=== PATIENT | female | born 1990 | race Caucasian/White ===

== ENCOUNTER 2019-11-27 07:00 | Inpatient (IN) | payer OTHER ==
[2019-11-27 08:34] VITALS: BMI 28.4
[2019-11-27] MEDS ORDERED: OXYTOCIN 30 UNITS in 0.9% NS 30 UNIT/500 ML INFUS.BAG IVPB ONE (08:42)
--- NOTE | 2019-11-27 08:57 | HP ---
Past Medical History - Primary Care Physician PCP:: Rubin Quinones E - Admission Chief Complaint: term History of Present Illness: First baby. Uneventful . GBS neg. 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: Alzheimer's, CVA, Dementia, Migraine, Multiple Sclerosis, Peripheral Neuropathy, Parkinson's, Seizure, Syncope, TIA, Vertigo, Other Cardiovascular: No: AFIB, Aneurysm, Aortic Insufficiency, Aortic Stenosis, CAD, CHF, Deep Vein Thrombosis, HTN, Hyperlipdemia, NV, Mitral Insufficiency, Mitral Stenosis, Murmur, Pulmonary Hypertension, Other Pulmonary: No: Asthma, Bronchitis, Cancer, COPD, O2 Dependent, Pneumonia, Previously Intubated, Pulmonary Embolus, Pulmonary Fibrosis, Sleep Apnea, Other Gastrointestinal: No: Ascites, Cancer, Constipation, Crohn's Disease, Diverticulitis, Diverticulosis, Esophageal Varices, Gastritis, GERD, GI Bleed, Hemorrhoids, Hiatal Hernia, Inflamatory Bowel Disease, Irritable Bowel Disease, Pancreatitis, Peptic Ulcer Disease, Ulcerative Colitis, Other Hepatobiliary: No: Cirrhosis, Cholelithiasis, Cholecystitis, Choledocholithiasis, Hepatitis A, Hepatitis B, Hepatitis C, Other Renal/: No: Renal Failure, Renal Inusuff, BPH, Cancer, Hematuria, Hemodialysis, Neurogenic Bladder, Renal Calculi, UTI, Other Reproductive: No: Ectopic , Endometriosis, Fibroids, PID, Polycystic Ovary Syndrome, Postmenopausal, Other ...: 1 ...Para: 0 ...Term: 0 ...: 0 ...Spon : 0 ...Induced : 0 ...Living Children: 0 ...Multiple Gestation: 0 ...LMP: 02/21/19 ... Weeks Gestation by Dates: 39.6 ...EDC by Dates: 11/28/19 ...EDC by Sono: 11/29/19 Heme/Onc: No: Anemia, B12 Deficiency, Bleeding Disorder, Cancer, Current Chemotherapy, Current Radiation Therapy, Hemochromatosis, Hypercoaguable State, Myeloproliferative Synd, Sickle Cell Disease, Sickle Cell Trait, Thrombocytopenia, Other Infectious Disease: No: AIDS, C-Diff, Herpes Zoster, HIV, MRSA, STD's, Tuberculosis, VREF, Other Psych: No: Addictions, Anxiety, Bipolar, Depression, Panic, Psychosis, Schizophrenia, Other Musculoskeletal: No: Bursitis, Chronic low back pain, Hemiparesis, Hemiplegia, Osteoarthritis, Paraplegia, Other Rheumatology: No: Fibromyalgia, Gout, Lupus, Rheumatoid Arthritis, Sarcoidosis, Vasculitis, Other ENT: No: Allergic Rhinitis, Sinusitis, Other Endocrine: No: Geo's Disease, [place]'s Disease, Diabetes Insipidus, Diabetes Mellitus, Hyperparathyroidism, Hyperthyroidism, Hypothyroidism, Osteopenia, SIADH, Other Dermatology: No: Basal Cell, Cellulitis, Eczema, Melanoma, Psoriasis, Squamous Cell, Other - Past Surgical History Past Surgical History: No: None, AAA Repair, AICD, Amputation, Appendectomy, Arthrosocopy, AV Fistula/Graft, Bariatric Surgery, Breast Biopsy, Bypass, CABG, Carotid Endarterectomy, Cataract Removal, Cholecystectomy, Colectomy, Colonoscopy, Colostomy, Craniotomy, , Cystectomy, Hernia Repair, Hysterectomy, Ileal Conduit, Ileosotomy, Joint Replacement, Kidney Transplant, Laminectomy, Liver Transplant, Mastectomy, Nephrectomy, Oopherectomy, Orchiectomy, Permanent Pacemaker, Prostatectomy, Splenectomy, Stent, Thoracotomy, TURP, Tonsillectomy, Tubal Ligation, Upper Endoscopy, Valve Replacement, Vasectomy, Vein Stripping/Ligation Hx Myomectomy: No Hx Transabdominal Cerclage: No - Smoking History Smoking history: Never smoked - Alcohol/Substance Use Hx Alcohol Use: No Home Medications - Allergies Allergies/Adverse Reactions: Allergies Allergy/AdvReac Type Severity Reaction Status Date / Time No Known Allergies Allergy Verified 11/27/19 08:02 - Home Medications Home Medications: Ambulatory Orders No115/Iron/Folic Acid [ 19 Chewable Tablet] 1 each PO DAILY 11/27/19 Family Medical History Family History: Unremarkable Review of Systems - Review of Systems Constitutional: reports: No Symptoms Eyes: reports: No Symptoms HENT: reports: No Symptoms Neck: reports: No Symptoms Cardiovascular: reports: No Symptoms Respiratory: reports: No Symptoms Gastrointestinal: reports: No Symptoms Genitourinary: reports: No Symptoms Breasts: reports: No Symptoms Reported Musculoskeletal: reports: No Symptoms Integumentary: reports: No Symptoms Neurological: reports: No Symptoms Endocrine: reports: No Symptoms Hematology/Lymphatic: reports: No Symptoms Psychiatric: reports: No Symptoms Physical Exam - Maternity Vital Signs: Vital Signs Temperature 98.8 F 11/27/19 08:47 Pulse Rate 113 H 11/27/19 08:47 Respiratory Rate 18 11/27/19 08:47 Blood Pressure 126/79 11/27/19 08:47 O2 Sat by Pulse Oximetry (%) Constitutional: Yes: Well Nourished, No Distress, Calm Eyes: Yes: WNL, Conjunctiva Clear, EOM Intact HENT: Yes: WNL, Atraumatic, Normocephalic Neck: Yes: WNL, Supple, Trachea Midline Cardiovascular: Yes: WNL, Regular Rate and Rhythm Breast(s): Yes: WNL - Abdominal Exam/OB Fundal Height: 40 Contractions: No Monitor Mode: External Heart Rate (range): 140 Heart Rate Location: RUQ Category: I Accelerations: Uniform Decelerations: None - Vaginal Exam/OB Vaginal Bleeding: No Dilatation (cm): 1-2 Effacement (%): 40 Amniotic Membrane Status: Intact Presentation: Vertex/Position Station: -1 Problem List - Problems (1) with 39 completed weeks gestation Code(s): Z3A.39 - 39 WEEKS GESTATION OF Assessment/Plan Desire for induction. All discussed. Pt. understands all implications and consents.
[2019-11-27] MEDS ORDERED: OXYTOCIN 30 UNITS in 0.9% NS 30 UNIT/500 ML INFUS.BAG IVPB SCH (09:00)
[2019-11-27 09:07] LABS: BASO % 0.4 % (0-2.0); EOS % 0.4 % (0-4.5); HEMATOCRIT 39.9 % (32.4-45.2); LYMPH % 12.4 % (8-40); MCH 32.8 pg (25.7-33.7); MCHC 35.1 g/dl (32.0-36.0); MEAN CELL VOLUME 93.4 fl (80-96); MEAN PLT VOLUME 8.7 fl (7.5-11.1); MONO % 7.4 % (3.8-10.2); NEUT % 79.4 % (42.8-82.8); PLATELET COUNT 197 K/MM3 (134-434); RBC 4.27 M/mm3 (3.60-5.2); RDW 13.2 % (11.6-15.6); WHITE BLOOD COUNT 11.7 K/mm3 (4.0-10.0)
[2019-11-27 09:13] LABS: INR 0.92 (0.83-1.09); PROTHROMBIN TIME (PATIENT) 10.9 SEC (9.7-13.0)
[2019-11-27 09:16] LABS: ACTIVATED PTT 27.1 SECONDS (25.2-36.5)
[2019-11-27 09:29] LABS: BLOOD UREA NITROGEN 7.8 mg/dL (7-18); CALCIUM 8.9 mg/dL (8.5-10.1); CREATININE 0.6 mg/dL (0.55-1.3)
[2019-11-27] MEDS ORDERED: DEXTROSE 5%-LACTATED RINGERS 1,000 ML IV SCH (10:15)
[2019-11-27] MEDS ORDERED: FENTANYL/BUPIVACAINE/NS/PF - PCEA - 50 ML DISP.SYRIN EP ONE (13:21)
[2019-11-27] MEDS ORDERED: PCA PUMP NR ONE (13:22)
[2019-11-27] MEDS ORDERED: NALOXONE HCL 0.4 MG/ML VIAL IVPUSH PRN (13:36)
[2019-11-27] MEDS ORDERED: BUPIVACAINE HCL/PF 0.25% (2.5MG/ML) 10 ML VIAL ONE (13:37)
[2019-11-27] MEDS ORDERED: FENTANYL/BUPIVACAINE/NS/PF - PCEA - 50 ML DISP.SYRIN EP SCH (13:45)
--- NOTE | 2019-11-27 14:15 | PN ---
Progress Note, Labor Vaginal Exam #1 Labor Exam Date: 11/27/19 Labor Exam Time: 09:40 Heart Rate (range): 140 w accelerations Dilatation: 2 Effacement (%): 50 Amniotic Membrane Status: Intact Presentation: Vertex/Position Station: -1 Remarks: Pitocin since 10:00 hrs. Some ctx. AROM - clear AF. Vaginal Exam #2 Labor Exam Date: 11/27/19 Labor Exam Time: 13:30 Heart Rate (range): 135, cat 1. Dilatation: 4 Effacement (%): 80 Presentation: Vertex/Position Station: -1 Remarks: Active labor, in pain. Epidural discussed. Pt. wants it. Hydrated. Anesthesia called.
[2019-11-27] MEDS ORDERED: LIDOCAINE HCL 1% PRESERVATIVE FREE - 30ML VIAL ONE (15:39)
[2019-11-27] MEDS ORDERED: OXYTOCIN 20 UNITS in 0.9% NS 20 UNIT/1,000 ML INFUS.BAG IV ONE (15:39)
--- NOTE | 2019-11-27 17:25 | PN ---
Progress Note, Labor Vaginal Exam #3 Labor Exam Date: 11/27/19 Labor Exam Time: 17:05 Dilatation: 10 Station: +1 Remarks: Pushing. ROT. Rotates w bearing down.
--- NOTE | 2019-11-27 19:08 | PN ---
Delivery - Delivery Vaginal Delivery: No Problems, Spontaneous Type of Anesthesia: Local, Epidural Episiotomy/Laceration: Midline, Right Mediolateral EBL (cc): 300 Delivery, Single - Stages of Labor Date 1st Stage Initiatied: 11/27/19 Time 1st Stage Initiated: 12:00 Date 2nd Stage Initiated: 11/27/19 Time 2nd Stage Initiated: 17:00 Date of Delivery: 11/27/19 Time of Delivery: 18:15 Time Placenta Delivered: 18:21 Placenta: Yes: Spontaneous, Normal Configuration - Condition of Infant Shoe Sprayer/Carbon Cutter Present: No Infant Gender: Female Position: Right, OA Total Hours ROM (Hrs/Mins): 8h41m - 1 Minute Total Score: 8 5 Minutes Total Score: 9 - [place] Feeding Plan Initial Plan: Exclusive throughout hospitalization Benefits of Exclusively reinforced: Yes Remarks - Remarks Remarks: Cord tight around the neck x 1. Delayed clamping, divided by the FoB.
[2019-11-27] MEDS ORDERED: WITCH HAZEL 50% (TUCKS) 40 PAD/JAR PAD TP PRN (19:09)
[2019-11-27] MEDS ORDERED: BENZOCAINE 28 GM HEMORRHOIDAL OINTMENT TP PRN (19:09)
[2019-11-27] MEDS ORDERED: BENZOCAINE 20% 57 GM BOTTLE TP PRN (19:09)
[2019-11-27] MEDS ORDERED: IBUPROFEN 600 MG TABLET (FP) PO PRN (19:09)
[2019-11-27] MEDS ORDERED: METHYLERGONOVINE MALEATE 0.2 MG/1 ML AMP IM PRN (19:09)
[2019-11-27] MEDS ORDERED: ACETAMINOPHEN 325 MG TABLET (FP) PO PRN (19:09)
[2019-11-27] MEDS ORDERED: OXYTOCIN 20 UNITS in 0.9% NS 1000 ML INFUS.BAG IV ONE (19:09)
[2019-11-27] MEDS ORDERED: BISACODYL 10 MG SUPP.RECT RC PRN (19:09)
[2019-11-27] MEDS: OXYTOCIN 20 UNITS in 0.9% NS 20 UNIT/1,000 ML INFUS.BAG IV SCH (20:00)
[2019-11-28] MEDS: OXYTOCIN 20 UNITS in 0.9% NS 20 UNIT/1,000 ML INFUS.BAG IV SCH (01:00)
--- NOTE | 2019-11-28 08:16 | PN ---
Progress Note (short form) - Note Progress Note: PP#1. Feels great. Happy. PE ok. Uterus firm. Lochia WNL. Breasts soft. Problem List - Problems (1) with 39 completed weeks gestation Code(s): Z3A.39 - 39 WEEKS GESTATION OF
[2019-11-28 09:19] LABS: BASO % 0.1 % (0-2.0); EOS % 0.1 % (0-4.5); HEMATOCRIT 34.8 % (32.4-45.2); HEMOGLOBIN 11.8 GM/dL (10.7-15.3); LYMPH % 8.2 % (8-40); MCH 31.6 pg (25.7-33.7); MCHC 33.8 g/dl (32.0-36.0); MEAN CELL VOLUME 93.4 fl (80-96); MEAN PLT VOLUME 8.7 fl (7.5-11.1); MONO % 5.9 % (3.8-10.2); NEUT % 85.7 % (42.8-82.8); PLATELET COUNT 177 K/MM3 (134-434); RBC 3.73 M/mm3 (3.60-5.2); RDW 13.3 % (11.6-15.6); WHITE BLOOD COUNT 18.5 K/mm3 (4.0-10.0)
[2019-11-28] MEDS ORDERED: SENNOSIDES/DOCUSATE COMBO (SENNA PLUS) TABLET (UD) PO PRN (22:00)
[2019-11-29 09:49] VITALS: BP 109/67; PULSE 88; TEMP 97.9
--- NOTE | 2019-11-29 10:04 | PN ---
Post Progress Note - Subjective Subjective: Feels great. Rash on trhe belly, pruritic. Type of Delivery: Vital Signs: Vital Signs Temperature 97.9 F 11/29/19 09:00 Pulse Rate 88 11/29/19 09:00 Respiratory Rate 18 11/29/19 09:00 Blood Pressure 109/67 11/29/19 09:00 O2 Sat by Pulse Oximetry (%) 100 11/28/19 18:00 Breast Exam: Yes: Soft Uterus: Yes: Fundus Firm Lochia: Yes: Rubra Lochia, amount: Small Extremities: Yes: Calves non-tender Perineum: Yes: Episiotomy (healing) Activity: Ambulating - Labs Labs: CBC WBC 18.5 K/mm3 (4.0-10.0) H 11/28/19 08:35 RBC 3.73 M/mm3 (3.60-5.2) 11/28/19 08:35 Hgb 11.8 GM/dL (10.7-15.3) 11/28/19 08:35 Hct 34.8 % (32.4-45.2) 11/28/19 08:35 MCV 93.4 fl (80-96) 11/28/19 08:35 MCH 31.6 pg (25.7-33.7) 11/28/19 08:35 MCHC 33.8 g/dl (32.0-36.0) 11/28/19 08:35 RDW 13.3 % (11.6-15.6) 11/28/19 08:35 Plt Count 177 K/MM3 (134-434) 11/28/19 08:35 MPV 8.7 fl (7.5-11.1) 11/28/19 08:35 Absolute Neuts (auto) 15.9 K/mm3 (1.5-8.0) H 11/28/19 08:35 Neutrophils % 85.7 % (42.8-82.8) H 11/28/19 08:35 Lymphocytes % 8.2 % (8-40) D 11/28/19 08:35 Monocytes % 5.9 % (3.8-10.2) 11/28/19 08:35 Eosinophils % 0.1 % (0-4.5) 11/28/19 08:35 Basophils % 0.1 % (0-2.0) 11/28/19 08:35 Nucleated RBC % 0 % (0-0) 11/28/19 08:35 Problem List - Problems (1) with 39 completed weeks gestation Code(s): Z3A.39 - 39 WEEKS GESTATION OF (2) Normal course Code(s): Z39.2 - ENCOUNTER FOR ROUTINE FOLLOW-UP Assessment/Plan Well. Instructed. Discharge.
[2019-11-29] MEDS ORDERED: diphenhydrAMINE HCL 25 MG CAPSULE (FP) PO ONE (10:06)
--- NOTE | 2019-11-29 10:09 | DS ---
Physical Exam-REGULATORY AUDITOR Vital Signs: Vital Signs Temperature 97.9 F 11/29/19 09:00 Pulse Rate 88 11/29/19 09:00 Respiratory Rate 18 11/29/19 09:00 Blood Pressure 109/67 11/29/19 09:00 O2 Sat by Pulse Oximetry (%) 100 11/28/19 18:00 Constitutional: Yes: Well Nourished, No Distress, Calm Eyes: Yes: WNL, Conjunctiva Clear, EOM Intact HENT: Yes: WNL, Atraumatic, Normocephalic Neck: Yes: WNL, Supple, Trachea Midline Cardiovascular: Yes: WNL, Regular Rate and Rhythm Respiratory: Yes: WNL, Regular, CTA Bilaterally Gastrointestinal: Yes: WNL ...Rectal Exam: Yes: WNL Renal/: Yes: WNL Breast(s): Yes: WNL Musculoskeletal: Yes: WNL Extremities: Yes: WNL Integumentary: Yes: WNL Neurological: Yes: WNL, Alert, Oriented ...Motor Strength: WNL Psychiatric: Yes: WNL, Alert, Oriented Labs: CBC, BMP 11/28/19 08:35 11/27/19 09:00 Delivery - Delivery Vaginal Delivery: No Problems, Spontaneous Type of Anesthesia: Epidural Episiotomy/Laceration: Midline, Right Mediolateral EBL (cc): 300 Delivery, Single - Stages of Labor Date 1st Stage Initiatied: 11/27/19 Time 1st Stage Initiated: 12:00 Date 2nd Stage Initiated: 11/27/19 Time 2nd Stage Initiated: 17:00 Date of Delivery: 11/27/19 Time of Delivery: 18:15 Time Placenta Delivered: 18:21 Placenta: Yes: Spontaneous, Normal Configuration - Condition of Infant Nurse General Duty/Puppet Maker Present: No Gender: Female Weight: 7 lb 6 oz Position: Right, OA Total Hours ROM (Hrs/Mins): 8h41m - 1 Minute Total Score: 8 5 Minutes Total Score: 9 - Feeding Plan Initial Plan: Exclusive throughout hospitalization Benefits of Exclusively reinforced: Yes Discharge Summary Problems reviewed: Yes Reason For Visit: LABOR ADMIT Current Active Problems Normal course (Acute) with 39 completed weeks gestation (Acute) - Instructions Diet, Activity, Other Instructions: Physical activity Resume your normal everyday activity as tolerated no heavy lifting or exercise until seen by your surgeon. You may walk unlimited tristan of and climb stairs. You may resume driving the car when you feel safe and comfortable behind the wheel. No sexual activity as instructed. Wound care If you have a bandage, leave it on, and keep dry for 48-72 hours. After that time discard the outer bandage. If they are tapes on the skin under the out of bandage leave them in place. They will peel off in the next 7 to 10 days. Do Not Peel them off. You may shower the day after surgery. If there are tapes present on the skin, you may shower over them. Diet There are no dietary restrictions. Eat healthy, high-fiber foods. Drink 6 to 8 glasses of liquid each day. This will assist in keeping your bowels are regular. Pain management You may take Tylenol or acetaminophen or Ibuprofen (for example, Motrin, Advil etc.) from my pain prescription medication is ordered should be taken as prescribed for moderate to severe pain. Call MD for any of the following: Severe pain not relieved by medication Fever of 101 or higher Excessive bleeding or drainage on dressing Inability to urinate Referrals: Trevor Holden [Non Staff, Medical] - Rubin Quinones MD [Staff Physician] - Disposition: HOME - Home Medications Comprehensive Discharge Medication List: Ambulatory Orders No115/Iron/Folic Acid [ 19 Chewable Tablet] 1 each PO DAILY 11/27/19
[2019-11-29] MEDS ORDERED: HYDROCORTISONE 2.5% LOTION - 1 BOTTLE TP ONE (10:30)
== END 2019-11-29 13:15 | disposition home or self-care (01) | DRG 807 ==
LOC: JLDR 07:00 → J3W 21:40
PROVIDERS: ADMIT Specialist; ATTEND Specialist
PROC: 10E0XZZ Delivery of Products of Conception, External Approach (ICD-10-PCS; principal; 2019-11-27)
PROC: 10907ZC Drainage of Amniotic Fluid, Therapeutic from Products of Conception, Via Natural or Artificial Opening (ICD-10-PCS; 2019-11-27)
PROC: 0W8NXZZ Division of Female Perineum, External Approach (ICD-10-PCS; 2019-11-27)
DX: O70.9 Perineal laceration during delivery, unspecified (principal); Z37.0 Single live birth; O69.1XX0 Labor and delivery complicated by cord around neck, with compression, not applicable or unspecified; Z3A.39 39 weeks gestation of pregnancy
CPT/HCPCS: 36415; 59409; 80048; 85025; 85610; 85730; 86780; 86850; 86900; 86901

== ENCOUNTER 2021-10-23 08:00 | Inpatient (IN) | payer OTHER ==
[2021-10-23 09:35] VITALS: BMI 27.4
[2021-10-23] MEDS ORDERED: ELECTROLYTE-148 SOLN 1,000 ML IV SCH (09:45)
[2021-10-23] MEDS ORDERED: OXYTOCIN 30 UNITS in 0.9% NS 30 UNIT/500 ML INFUS.BAG IVPB SCH (10:00)
[2021-10-23] MEDS ORDERED: FENTANYL/BUPIVACAINE/NS/PF - PCEA - 50 ML DISP.SYRIN EP ONE (13:23)
[2021-10-23] MEDS ORDERED: NALOXONE HCL 0.4 MG/ML VIAL IVPUSH PRN (13:23)
[2021-10-23] MEDS ORDERED: FENTANYL/BUPIVACAINE/NS/PF - PCEA - 50 ML DISP.SYRIN EP SCH (13:30)
[2021-10-23] MEDS ORDERED: OXYTOCIN 20 UNITS in 0.9% NS 20 UNIT/1,000 ML INFUS.BAG IV ONE (13:48)
[2021-10-23] MEDS ORDERED: oxyCODONE HCL 5 MG TABLET PO PRN (15:54)
[2021-10-23] MEDS ORDERED: BENZOCAINE 28 GM HEMORRHOIDAL OINTMENT TP PRN (15:54)
[2021-10-23] MEDS ORDERED: BENZOCAINE 20% 57 GM BOTTLE TP PRN (15:54)
[2021-10-23] MEDS ORDERED: METHYLERGONOVINE MALEATE 0.2 MG/1 ML AMP IM PRN (15:54)
[2021-10-23] MEDS ORDERED: IBUPROFEN 600 MG TABLET (FP) PO PRN (15:54)
[2021-10-23] MEDS ORDERED: ACETAMINOPHEN 325 MG TABLET (FP) PO PRN (15:54)
[2021-10-23] MEDS ORDERED: WITCH HAZEL 50% (TUCKS) 40 PAD/JAR PAD TP PRN (15:54)
[2021-10-23] MEDS ORDERED: BISACODYL 10 MG SUPP.RECT RC PRN (15:54)
[2021-10-23] MEDS ORDERED: OXYTOCIN 20 UNITS in 0.9% NS 20 UNIT/1,000 ML INFUS.BAG IV SCH (16:00)
[2021-10-24 09:02] LABS: BASO % 0.1 % (0-2.0); EOS % 0.4 % (0-4.5); HEMATOCRIT 36.1 % (32.4-45.2); HEMOGLOBIN 12.6 GM/dL (10.7-15.3); LYMPH % 12.3 % (8-40); MCH 31.9 pg (25.7-33.7); MCHC 34.9 g/dl (32.0-36.0); MEAN CELL VOLUME 91.4 fl (80-96); MEAN PLT VOLUME 7.8 fl (7.5-11.1); MONO % 6.6 % (3.8-10.2); NEUT % 80.6 % (42.8-82.8); PLATELET COUNT 224 10^3/uL (134-434); RBC 3.95 M/mm3 (3.60-5.2); RDW 13.2 % (11.6-15.6); WHITE BLOOD COUNT 13.4 K/mm3 (4.0-10.0)
[2021-10-24] MEDS ORDERED: SENNOSIDES/DOCUSATE COMBO (SENNA PLUS) TABLET (UD) PO PRN (22:00)
[2021-10-25 10:41] VITALS: BP 111/69; PULSE 80; RESP 18; TEMP 98
== END 2021-10-25 12:15 | disposition home or self-care (01) | DRG 807 ==
LOC: JLDR 08:00 → J3W 16:30
PROVIDERS: ADMIT Specialist; ATTEND Specialist
PROC: 10E0XZZ Delivery of Products of Conception, External Approach (ICD-10-PCS; principal; 2021-10-23)
PROC: 0W8NXZZ Division of Female Perineum, External Approach (ICD-10-PCS; 2021-10-23)
DX: O80 Encounter for full-term uncomplicated delivery (principal); Z37.0 Single live birth; Z3A.39 39 weeks gestation of pregnancy
CPT/HCPCS: 36415; 59409; 85025